=== PATIENT | female | born 1950 | race Caucasian/White ===

== ENCOUNTER 2019-08-31 10:23 | Outpatient (CLI) | payer MEDICARE, SELFPAY ==
--- NOTE | ~2019-08-31 | MM_ITS ---
EXAMINATION: MM scrn paxton implant BI w natan HISTORY: Screening mammogram TECHNIQUE: Craniocaudal and mediolateral oblique 3-D tomosynthesis images with implant displacement a nd synthetic 2-D images were generated. Craniocaudal and mediolateral oblique views of the breasts wi thout implant displacement were obtained using full field digital mammography. CAD analysis was submi tted and interpreted. COMPARISON: 12/04/2015, 10/31/2013 bilateral implant digital screening mammogram examinations BREAST PARENCHYMAL COMPOSITION: There are scattered areas of fibroglandular density. FINDINGS: Status post bilateral augmentation mammoplasty. There is no evidence of suspicious mass, ca lcification, or architectural distortion to suggest malignancy in either breast. There has been no conner spicious interval change. IMPRESSION: 1. No mammographic evidence of malignancy. 2. Recommend routine screening mammography in one year. BI-RADS Category 1: Negative Reviewed, dictated and finalized at location A.
== END 2019-08-31 10:24 | disposition home or self-care (01) ==
PROVIDERS: PCP Family Medicine; Visit Provider Physician Assistant
DX: Z12.31 Encounter for screening mammogram for malignant neoplasm of breast (principal)
CPT/HCPCS: 77063; 77067

== ENCOUNTER → 2019-11-03 14:23 | Outpatient (CLI) | payer MEDICARE, SELFPAY ==
--- NOTE | ~2019-11-03 | XR_ITS ---
EXAMINATION: XR shoulder LT min 2V DATE: 11/03/2019 15:00 INDICATION: Left shoulder pain. TECHNIQUE: 4 views of left shoulder were obtained. COMPARISON: None. FINDINGS: Bone alignment is normal. No fracture. Glenohumeral joint is normal. There is mild acromioc lavicular joint osteoarthritis. There is a left breast implant. IMPRESSION: 1. Mild left acromioclavicular joint osteoarthritis. Reviewed, dictated and finalized at location A.
== END ==
PROVIDERS: PCP Family Medicine; Visit Provider Physician Assistant
DX: M19.012 Primary osteoarthritis, left shoulder (principal)
CPT/HCPCS: 73030

== ENCOUNTER 2019-11-30 12:26 | Outpatient (CLI) | payer MEDICARE, SELFPAY ==
--- NOTE | ~2019-11-30 | XR_ITS ---
EXAMINATION: XR lg joint inject/asp w image DATE: 11/30/2019 13:41 INDICATION: Left shoulder adhesive capsulitis. TECHNIQUE: A time-out was performed to verify the patient's name, date of , and procedure to b e performed. The procedure including the risks, benefits, and alternatives was discussed with the pat ient. Risks discussed included bleeding and infection. The patient understood the risks and agreed to proceed. The skin overlying the left glenohumeral joint was prepped and draped in usual sterile fas hion. Anesthetic was administered with 1% lidocaine subcutaneously. A 22 G needle was advanced unde r fluoroscopic guidance into the joint. Injection of 1 mL of Omnipaque 240 confirmed intra-articular position of the needle. Subsequently, injectate consisting of 3 mL 1% lidocaine and 1 mL 40 mg/mL K enalog was instilled. The needle was removed and the entry site was cleaned and dressed. There were no immediate complications. Fluoroscopy exposure time was 0.0 minutes. The total number of images wa s 2. FINDINGS: Real-time fluoroscopy demonstrates the needle in the left glenohumeral joint. Patient's sondra n prior to procedure:05/22. Patient's pain following the procedure: 04/21. IMPRESSION: 1. Left glenohumeral joint injection of local anesthetic and steroid with decrease in the patient's p resenting pain. Reviewed, dictated and finalized at location A. IMPRESSION: 1. Left glenohumeral joint injection of local anesthetic and steroid with decre ase in the patient's presenting pain.
== END 2019-11-30 12:27 | disposition home or self-care (01) ==
LOC: ANHIMG 12:36
PROVIDERS: PCP Family Medicine; Visit Provider Physician Assistant
DX: M75.02 Adhesive capsulitis of left shoulder (principal)
CPT/HCPCS: 20610; 77002; J3301; Q9966

== ENCOUNTER → 2020-05-07 12:00 | Outpatient (CLI) | payer MEDICARE, SELFPAY ==
--- NOTE | ~2020-05-07 | MR_ITS ---
EXAMINATION: MR shoulder LT wo con DATE: 05/07/2020 12:58 INDICATION: Left shoulder pain TECHNIQUE: Magnetic resonance imaging (MRI) of the left shoulder was performed without intravenous co ntrast. Sequences included axial PD-weighted FS FSE, coronal oblique PD-weighted FS FSE, coronal obli que T2-weighted FS FSE, sagittal PD-weighted FS FSE, and sagittal T1-weighted SE. COMPARISON: None. FINDINGS: Coracoacromial arch: The acromion undersurface is curved in morphology (type II). The coracoacromial ligament is normal. M ild acromioclavicular osteoarthritis with tiny inferiorly directed osteophytes. Rotator cuff: Mild supraspinatus tendinopathy without discrete tear. Minimal subscapularis and infraspinatus tendin opathy. The teres minor tendon is normal. Normal rotator cuff muscle bulk and signal. Biceps tendon, glenoid labrum and glenohumeral cartilage: Long head of the biceps tendon is normal. There is a tear at the 10:00-11:00 position of the posterio r superior glenoid labrum. Partial-thickness cartilage loss with smooth chondral surface and without degenerative subchondral changes along the apex of the humeral head. Fluid: Small amount of fluid in the long head biceps tendon sheath which is disproportionate to the physiolo gic amount of fluid in the glenohumeral joint space. No loose osteochondral bodies. No abnormal fluid signal in the subacromial/subdeltoid bursa to suggest bursitis. Bones: Normal marrow signal with no edema, fracture or abnormal marrow replacing process. Degenerative cysti c changes at the superolateral aspect of the lesser tuberosity along the medial rim of the intertuber cular groove. IMPRESSION: 1. Minimal left glenohumeral osteoarthritis with tear at the posterior superior glenoid labrum. 2. Mild supraspinatus tendinopathy without discrete tear. 3. Mild bicipital tenosynovitis. 4. Mild acromion clavicular osteoarthritis. Reviewed, dictated and finalized at location B. LAB TECHNICIAN
== END ==
PROVIDERS: PCP Family Medicine; Visit Provider Physician Assistant
DX: M19.012 Primary osteoarthritis, left shoulder (principal); M75.21 Bicipital tendinitis, right shoulder
CPT/HCPCS: 73221

== ENCOUNTER 2020-06-18 09:53 | Outpatient (CLI) | payer MEDICARE, SELFPAY ==
--- NOTE | 2020-06-18 09:59 | ECG_ITS ---
Measurements Intervals [place] Rate: 61 P: 20 HI: 156 QRS: 9 QRSD: 99 T: 47 QT: 402 QTc: 408 Interpretive Statements SINUS RHYTHM INCOMPLETE RIGHT BUNDLE BRANCH BLOCK BASELINE ARTIFACT- I, II, III, AVR, AVL, AVF BORDERLINE ECG Electronically Signed On 06-18-2020 12:00:49 DEVICE REPAIR TECHNICIAN by Nathan Thao D.O.
== END 2020-06-18 09:54 | disposition home or self-care (01) ==
LOC: ANHSURGERY 09:55
PROVIDERS: PCP Family Medicine; Visit Provider Orthopaedic Surgery
DX: Z01.818 Encounter for other preprocedural examination (principal); I10 Essential (primary) hypertension; I45.10 Unspecified right bundle-branch block
CPT/HCPCS: 93005

== ENCOUNTER → 2020-06-22 00:45 | Outpatient (CLI) | payer MEDICARE, SELFPAY ==
[2020-06-22 18:54] LABS: SARS-CoV-2 RNA PCR Negative
== END ==
PROVIDERS: PCP Family Medicine; Visit Provider Orthopaedic Surgery
DX: Z01.812 Encounter for preprocedural laboratory examination (principal); Z20.822 Contact with and (suspected) exposure to COVID-19
CPT/HCPCS: C9803; U0003; U0005

== ENCOUNTER 2020-06-25 01:09 | Day surgery (SDC) | payer MEDICARE, SELFPAY ==
[2020-06-12 13:29] VITALS: BMI 23.0
--- NOTE | 2020-06-24 10:03 | WPDANESEPPF ---
Anes - Initial Pre Proc Eval Procedure: Operation Date: 06/25/20 11:00 Proposed Procedures p Left Subacromial Decompression With Possible Tenodesis - Casey Dumont MD Date/Time: 06/24/20 10:03 Surgeon: Casey Duomnt MD Pre Op Diagnosis: Left Rotator Cuff Tendonitis Patient Data Age: 70 Gender: F Height: 1.6 m Weight: 59 kg Allergies Allergy/AdvReac Type Severity Reaction Status Date / Time venom-wasp Allergy Unknown Swelling Verified 06/12/20 13:25 Home Medications Medication Instructions Recorded Confirmed Type amlodipine 5 mg tablet 5 mg PO HS 05/10/20 06/17/20 History losartan 50 mg tablet 50 mg PO HS 05/10/20 06/17/20 History simvastatin 20 mg tablet 20 mg PO HS 05/10/20 06/17/20 History aspirin [Aspir-81] 81 mg PO DAILY 06/12/20 06/17/20 History Patient hx anesthesia problems: none Family hx anesthesia problems: none [facility] Past Medical History Medical History (Updated 06/24/20 @ 10:03 by Sushil Vegas DO) History of trigger finger Hyperlipidemia Hypertension Surgical History Surgical History History of back surgery (~2019) History of carpal tunnel release Family History Family History Other Diabetes mellitus Family history of arthritis Family history of heart disease in male family member before age 55 Family history of kidney disease Hypertension Social History Social History Smoking status: Never smoker Alcohol intake: current Substance use: never Living arrangements: with family Additional living arrangements comments: [facility] Spiritual care concerns: No Anes - Eval Final PreProcedure Day of Procedure 06/24/20 10:03 Patient weight: normal Heart: regular rate and rhythm Lungs: clear to auscultation and normal air movement Airway: Mallampati scale class II Neurological: alert and oriented Last oral intake: >/= 8 hours ASA classification: II Emergent: no Anesthetic plan: proceed Anesthesia type and monitoring: general ETT and standard monitoring Informed Consent: The patient's anesthetic plan and its attendant risks and benefits were discussed with the patient/family/POA. Questions were solicited and answers provided to the satisfaction of the patient/family/POA.
[2020-06-25] VITALS (7 sets, daily range): BP systolic 125–150; BP diastolic 63–78; PULSE 64–77; RESP 16–20; TEMP 36.1–36.6; O2SAT 99–100
--- NOTE | 2020-06-25 08:13 | WPDANESPNB ---
Anes - Peripheral Nerve Block Date/Time: 06/25/20 08:13 I have discussed with the patient/family/POA the placement of a peripheral nerve block for post-operative pain management, including associated risks, benefits, complications, and side effects. Alternative methods of post-operative analgesia were detailed. Questions were solicited and answers provided to the satisfaction of the patient/family/POA. Time-Out: A pre-procedural Time-Out was completed immediately before starting the procedure and confirmed: Patient Identification, Site, Procedure, Patient Position and the Availability of Requisite Equipment. Clinical Indications: Acute post-operative pain management requested by the operative surgeon. Nerve Block Insertion Note Anes-nerve block: interscalene left Patient position: supine Skin prep: chlorhexidine Needle: 22 gauge, stimulating, insulated echogenic needle. Needle length: 50 mm Technique: ultrasound Injectate: bupivacaine 0.5% with epi 5 mcg/ml (30cc- no epi) Observations: tolerated well Complications: none Procedure start time:: 1012 Procedure end time:: 1014
[2020-06-25] MEDS: ACETAMINOPHEN 500 MG TABLET 1000 MG PO (09:43)
[2020-06-25] MEDS: LACTATED RINGERS 1,000 ML 30 ML IV CONT ×2 (09:49→13:15)
[2020-06-25] MEDS: KETOROLAC 15 MG/ML VIAL (*BKC) IV PUSH (09:49)
--- NOTE | 2020-06-25 10:25 | WPDHPUPDATE1 ---
History and Physical Update Update Date/Time: 06/25/20 10:25 History and Physical has been reviewed, including an updated exam of the patient. There are NO changes in the patient's condition. Risks, benefits, and alternatives have been discussed and questions answered. Patient agrees to proceed with procedure.
[2020-06-25] MEDS: ceFAZolin 2 GM/D5W 50 ML 2 GM/50 ML BAG IVPB (10:47)
--- NOTE | 2020-06-25 16:10 | P.OP_ITS ---
Procedure Note - Detailed Date of procedure: 06/25/20 Pre-op diagnosis: Left Rotator Cuff Tendonitis Post-op diagnosis: other (1. Impingement syndrome shoulder 2. Biceps tendinosis 3. Rotator cuff tendinitis) Procedure performed: 1. Arthroscopic biceps tenodesis. 2. Arthroscopic subacromial decompression. Description of procedure: Biceps tendon showed marked fraying and tendinosis and partial tearing as it entered the joint. The articular cartilage was normal. The subscapularis was normal. There was hyperemia of the rotator cuff but no tearing. Biceps tenodesis was performed at the intertubercular groove. Subacromial decompression performed. Significant bursal adhesions were observed and debrided with complete bursectomy. Anesthesia: GETA and regional Surgeon: Casey Dumont MD Junior Manufacturing Engineer: Elvia Dennis PA-C Estimated blood loss (mL): 10 Complications: None Condition: stable Disposition: PACU Findings: Physician assistant purchasing manager, Elvia Dennis PA-C, required for surgery; including patient positioning, draping, arthroscopic camera operation, maintaining instrument position, suture retrieval, wound closure, and dressing and sling placement. Brief history: The patient complained of persistent pain with overhead and reaching activities. Pain persisted despite physical therapy and cortisone injections. Operative details: Patient was given an interscalene block in the holding area. Preoperative antibiotics were given. The patient was brought to the operating room. Careful positioning in the lateral decubitus position was accomplished. The head neck were carefully positioned. An axillary roll was placed. The shoulder was examined. The shoulder was prepped and draped in the usual sterile fashion. Standard posterior and anterior arthroscopic portals were established. The shoulder was inspected. Debridement was performed as necessary. Attention was turned to the subacromial space. A complete bursectomy was performed. An accessory lateral portal was created. The acromion was clearly visualized. The coracoacromial ligament was released. Careful acromioplasty was performed utilizing views from both lateral and posterior. Loose bone fragments were carefully irrigated from the joint. The proximal biceps tendon was identified at the intertubercular groove. Groove was cauterized and rasped to promote healing. A single 2.8 mm metallic anchor was placed. Double loaded sutures were passed through the tendon with a locking loop stitch. The antegrade suture Passer was used. The repair was quite lopez. Proximal stump was debrided. The arthroscopic instruments were removed. The wounds were closed with interrupted 3-0 Monocryl suture followed by Steri-Strips. A sterile dressing was applied with a sling. The patient was extubated and brought to the recovery room in stable condition. There were no complications.
== END 2020-06-25 16:00 | disposition home or self-care (01) ==
PROVIDERS: PCP Family Medicine; Visit Provider Orthopaedic Surgery
PROC: (CPT 29805; principal; 2020-06-25 11:00)
DX: M75.82 Other shoulder lesions, left shoulder (principal); M75.22 Bicipital tendinitis, left shoulder; M75.42 Impingement syndrome of left shoulder; G89.18 Other acute postprocedural pain; I10 Essential (primary) hypertension; E78.5 Hyperlipidemia, unspecified; Z79.82 Long term (current) use of aspirin
CPT/HCPCS: 29828; 64415; A4565; A9270; C1713; J0330; J0690; J1100; J1885; J2250; J2405; J2704; J3010; J7120

== ENCOUNTER → 2021-05-05 12:40 | Outpatient (CLI) | payer MEDICARE, SELFPAY ==
--- NOTE | ~2021-05-05 | MR_ITS ---
EXAMINATION: MR lumbar spine wo/w con EXAM DATE: 05/05/2021 13:37 INDICATION: Lumbar stenosis with neurogenic claudication . TECHNIQUE: Multi-sequential, multiplanar MR images of the lumbar spine were obtained without contrast . Sagittal T1, T2, T2 fat saturation images. Axial T2 weighted images. Axial T1 weighted sequence. Patient was then injected with 12 mL Multihance intravenous contrast and reimaged. Postcontrast axi al and sagittal T1-weighted fat saturation sequences were obtained. Comparison is made to prior exami nation from 05/03/2018. FINDINGS: The vertebral bodies are aligned in the AP dimension. There is moderate to severe disc dise ase at L4-5 and L5-S1. Mild to moderate disc disease L2-3 and L3-4. The conus medullaris terminates a t the L1/2 level and has normal signal intensity and morphology. There are some degenerative endplate signal changes L4-5 and L5-S1. There are no suspicious focal vertebral signal abnormalities identif ied. Mild to moderate lumbar levoscoliosis. Right liver lobe cyst measuring 3.1 cm. Paraspinal soft t issue is unremarkable. Liver cysts. There are no areas of abnormal enhancement on the post contrast i mages. Level by level evaluation: T12-L1: Disc does not extend beyond the endplate margin. Facet arthropathy: Mild. Neural foraminal stenosis: No stenosis. Central canal stenosis: No stenosis. L1-L2: Disc does not extend beyond the endplate margin. Facet arthropathy: Mild. Neural foraminal stenosis: No stenosis. Central canal stenosis: No stenosis. L2-L3: There is a mild diffuse disc bulge. Facet arthropathy: Mild to moderate. Neural foraminal stenosis: Minimal right. Central canal stenosis: No stenosis. L3-L4: There is a mild to moderate diffuse disc bulge. Facet arthropathy: Moderate. Neural foraminal stenosis: Mild bilateral. Central canal stenosis: Mild. L4-L5: There is a moderate diffuse disc bulge. Facet arthropathy: Moderate . Ligamentum flavum enlargement. Neural foraminal stenosis: Mild to moderate left, moderate right. Central canal stenosis: Mild . Old right hemilaminotomy. L5-S1: There is a moderate diffuse disc bulge. Facet arthropathy: Mild to moderate. Neural foraminal stenosis: Moderate left, mild to moderate right. Central canal stenosis: No stenosis. IMPRESSION: Overall moderate lumbar spondylosis, mild interval progression compared to 2019. Mild to moderate levoscoliosis. Reviewed, dictated and finalized at location A. CARRIER IMPRESSION: Overall moderate lumbar spondylosis, mild interval progression comp ared to 2019. Mild to moderate levoscoliosis.
[2021-05-05 13:04] LABS: Estimated Glomerular Filt Rate > 60
== END ==
PROVIDERS: PCP Family Medicine
DX: M48.062 Spinal stenosis, lumbar region with neurogenic claudication (principal); M47.896 Other spondylosis, lumbar region
CPT/HCPCS: 72158; A9577

== ENCOUNTER 2023-09-27 11:00 | Outpatient (CLI) | payer MEDICARE, OTHER, SELFPAY ==
--- NOTE | ~2023-09-27 | MM_ITS ---
EXAMINATION: MM scrn paxton implant BI w natan HISTORY: Screening mammogram TECHNIQUE: Craniocaudal and mediolateral oblique 3-D tomosynthesis images with implant displacement a nd synthetic 2-D images were generated. Craniocaudal and mediolateral oblique views of the breasts wi thout implant displacement were obtained using full field digital mammography. CAD analysis was submi tted and interpreted. COMPARISON: Comparison to multiple prior studies sequentially, with oldest reviewed study dated 10/31. BREAST PARENCHYMAL COMPOSITION: Not dense: There are scattered areas of fibroglandular density. FINDINGS: There is no evidence of suspicious mass, calcification, or architectural distortion to sugg est malignancy in either breast. There has been no suspicious interval change. IMPRESSION: 1. No mammographic evidence of malignancy. 2. Recommend routine screening mammography in one year. BI-RADS Category 1: Negative Reviewed, dictated and finalized at location B.
== END 2023-09-27 11:01 ==
LOC: MICIMG 11:02
PROVIDERS: PCP Physician Assistant; Visit Provider Physician Assistant
DX: Z12.31 Encounter for screening mammogram for malignant neoplasm of breast (principal)
CPT/HCPCS: 77063; 77067

== ENCOUNTER 2024-02-01 03:01 | Day surgery (SDC) | payer MEDICARE, SELFPAY ==
[2024-01-18 12:16] VITALS: BMI 23.8
[2024-02-01 08:34] VITALS: BP 147/66; PULSE 65; RESP 16; TEMP 36.3; O2SAT 99; BMI 23.6
[2024-02-01] MEDS: LACTATED RINGERS 1,000 ML 150 ML IV CONT (08:50)
--- NOTE | 2024-02-01 09:18 | WPDANESEPPF ---
Anes - Initial Pre Proc Eval Procedure: Operation Date: 02/01/24 09:30 Proposed Procedures p Esophagogastroduodenoscopy - Brian Velázquez MD Date/Time: 02/01/24 09:18 Surgeon: Brian Velázquez MD Pre Op Diagnosis: Dysphagia Patient Data Age: 73 Gender: F Height: 1.6 m Weight: 60.4 kg Last Vital Signs Temp 36.3 C L 02/01/24 08:34 Pulse 65 02/01/24 08:34 Resp 16 02/01/24 08:34 BP 147/66 H 02/01/24 08:34 Pulse Ox 99 02/01/24 08:34 O2 Del Method Room Air 02/01/24 08:34 Allergies Allergy/AdvReac Type Severity Reaction Status Date / Time venom-wasp Allergy Unknown Swelling Verified 02/01/24 08:40 Home Medications Medication Instructions Recorded Confirmed Type aspirin 81 mg tablet,delayed 81 mg PO DAILY 06/12/20 02/01/24 History release calcium carbonate (Calcium 500) 500 mg PO DAILY 05/06/22 02/01/24 History cholecalciferol (vitamin D3) 50 50 mcg PO DAILY 05/06/22 02/01/24 History mcg (2,000 unit) capsule mecobalamin (vitamin B12) 1,000 1,000 mcg PO DAILY 05/06/22 02/01/24 History mcg chewable tablet multivitamin (Daily Multi-Vitamin 1 tablet PO DAILY 05/06/22 02/01/24 History tablet) atorvastatin 20 mg tablet 20 mg PO DAILY #90 tabs 07/31/22 02/01/24 Rx magnesium 200 mg tablet 200 mg PO DAILY 05/04/23 02/01/24 History losartan 50 mg tablet See Rx Instructions .Route 08/18/23 02/01/24 Rx .COMPLEX #90 tabs amlodipine 5 mg tablet 5 mg PO HS #90 tabs 11/30/23 02/01/24 Rx Patient hx anesthesia problems: none Family hx anesthesia problems: none Results Review: All pre-operative results and documents have been reviewed as part of the pre-operative evaluation. [facility] Past Medical History Medical History Degenerative disc disease Hyperlipidemia Hypertension Osteoarthritis Osteoporosis Vitamin D deficiency, unspecified Surgical History Surgical History H/O removal of cyst left thumb 1999 History of arthroscopic surgery of shoulder (~06/28/20) Left -arthroscopic biceps tenodesis -Sub acromial decompression History of back surgery (~2018) R L4-L5 MIDS 05/17/2018 History of carpal tunnel release right left 03/2002 History of Mohs micrographic surgery for skin cancer 10/2022 R upper lip History of removal of ovarian cyst X2 1979 Hx of breast implants, bilateral 1973 S/P nerve repair left hand 1979 S/P trigger finger release right 09/16/06 left 2008 Family History Family History Other Diabetes mellitus Family history of arthritis Family history of heart disease in male family member before age 55 Family history of kidney disease Hypertension Social History Social History Smoking status: Never smoker Alcohol intake: current Alcohol use details: 5 per year Substance use: never Substance use type: does not use Do You Feel Safe in your Home?: Yes Lack of Transportation: No Lack of Food: Never True Current Housing: I Have Housing Concerned About Future Housing: No Difficulty Paying Gas/Electric Bills: No Difficulty Paying for Meds: No Currently Unemployed: No Education: Bachelor's Degree Difficulty w/ Childcare or Family Care: No Living arrangements: with family Additional living arrangements comments: [employer] Occupation/Education: retired Gender identity (if verbalized by the patient): Female Sexual Orientation (if Verbalized by the Patient): Straight or Heterosexual Spiritual care concerns: No Anes - Eval Final PreProcedure Day of Procedure 02/01/24 09:18 Patient weight: normal Heart: regular rate and rhythm Lungs: clear to auscultation Airway: Mallampati scale class II Neurological: alert and oriented Last oral intake: >/= 8 hours ASA classification: II
--- NOTE | 2024-02-01 09:51 | PM.IMHP ---
H&P: HPI History of Present Illness Date/Time: 02/01/24 09:51 Chief Complaint: Dysphagia Narrative: patient seen by me the office with 2 years of dysphagia to solids and liquids. there is no unintentional weight loss, nausea vomiting. Review of Systems Review of Systems: All systems reviewed & are unremarkable except as noted in HPI and below PMFSH Past Medical History Medical History Degenerative disc disease Hyperlipidemia Hypertension Osteoarthritis Osteoporosis Vitamin D deficiency, unspecified Surgical History Surgical History H/O removal of cyst left thumb 1999 History of arthroscopic surgery of shoulder (~06/28/20) Left -arthroscopic biceps tenodesis -Sub acromial decompression History of back surgery (~2018) R L4-L5 MIDS 05/17/2018 History of carpal tunnel release right left 03/2002 History of Mohs micrographic surgery for skin cancer 10/2022 R upper lip History of removal of ovarian cyst X2 1979 Hx of breast implants, bilateral 1973 S/P nerve repair left hand 1979 S/P trigger finger release right 09/16/06 left 2008 Family History Family History Other Diabetes mellitus Family history of arthritis Family history of heart disease in male family member before age 55 Family history of kidney disease Hypertension Social History Social History Smoking status: Never smoker Alcohol intake: current Alcohol use details: 5 per year Substance use: never Substance use type: does not use Do You Feel Safe in your Home?: Yes Lack of Transportation: No Lack of Food: Never True Current Housing: I Have Housing Concerned About Future Housing: No Difficulty Paying Gas/Electric Bills: No Difficulty Paying for Meds: No Currently Unemployed: No Education: Bachelor's Degree Difficulty w/ Childcare or Family Care: No Living arrangements: with family Additional living arrangements comments: [employer] Occupation/Education: retired Gender identity (if verbalized by the patient): Female Sexual Orientation (if Verbalized by the Patient): Straight or Heterosexual Spiritual care concerns: No Meds Home Medications and Allergies Home Medications Medication Instructions Recorded Confirmed Type aspirin 81 mg tablet,delayed 81 mg PO DAILY 06/12/20 02/01/24 History release calcium carbonate (Calcium 500) 500 mg PO DAILY 05/06/22 02/01/24 History cholecalciferol (vitamin D3) 50 50 mcg PO DAILY 05/06/22 02/01/24 History mcg (2,000 unit) capsule mecobalamin (vitamin B12) 1,000 1,000 mcg PO DAILY 05/06/22 02/01/24 History mcg chewable tablet multivitamin (Daily Multi-Vitamin 1 tablet PO DAILY 05/06/22 02/01/24 History tablet) atorvastatin 20 mg tablet 20 mg PO DAILY #90 tabs 07/31/22 02/01/24 Rx magnesium 200 mg tablet 200 mg PO DAILY 05/04/23 02/01/24 History losartan 50 mg tablet See Rx Instructions .Route 08/18/23 02/01/24 Rx .COMPLEX #90 tabs amlodipine 5 mg tablet 5 mg PO HS #90 tabs 11/30/23 02/01/24 Rx Allergies Allergy/AdvReac Type Severity Reaction Status Date / Time venom-wasp Allergy Unknown Swelling Verified 02/01/24 08:40 Vital Signs Vital Signs - 24 hr 02/01/24 08:34 Temperature 97.3 F L Pulse Rate 65 Respiratory Rate 16 Blood Pressure 147/66 H Pulse Oximetry 99 Oxygen Delivery Room Air Assessment and Plan Assessment and plan (1) Dysphagia: Code(s): R13.10 - Dysphagia, unspecified Status: Acute Assessment and Plan: The patient is deemed a good candidate for the procedure. Consent signed. Will proceed.
[2024-02-01] MEDS: BENZOCAINE (*SP) 60 ML SPRAY CAN (HURRICAINE) 1 SPRAY MUCOUS MEM (10:01)
[2024-02-01 10:18] VITALS: BP 113/63; PULSE 77; RESP 28; O2SAT 96
[2024-02-01 10:28] VITALS: BP 128/71; PULSE 74; RESP 17; O2SAT 100
[2024-02-01 10:38] VITALS: BP 120/73; PULSE 71; RESP 17; O2SAT 98
== END 2024-02-01 10:59 | disposition home or self-care (01) ==
PROVIDERS: PCP Family Medicine; Referring Provider Internal Medicine Gastroenterology; Visit Provider Internal Medicine Gastroenterology
PROC: 0DJ08ZZ Inspection of Upper Intestinal Tract, Via Natural or Artificial Opening Endoscopic (ICD-10-PCS; CPT 43235; principal; 2024-02-01 09:30)
DX: K21.00 Gastro-esophageal reflux disease with esophagitis, without bleeding (principal); K29.50 Unspecified chronic gastritis without bleeding; K44.9 Diaphragmatic hernia without obstruction or gangrene; E78.5 Hyperlipidemia, unspecified; I10 Essential (primary) hypertension; M81.0 Age-related osteoporosis without current pathological fracture; E55.9 Vitamin D deficiency, unspecified; Z79.82 Long term (current) use of aspirin; Z98.890 Other specified postprocedural states; Z98.1 Arthrodesis status; Z82.49 Family history of ischemic heart disease and other diseases of the circulatory system
CPT/HCPCS: 43239; 88305; J2003; J2704; J7120